=== PATIENT | male | born 1975 | race Caucasian/White ===

== ENCOUNTER → 2018-03-27 | Outpatient (CLI) | payer OTHER ==
--- NOTE | 2018-03-27 09:16 | CT ---
EXAMINATION TYPE: CT abdomen pelvis wo con DATE OF EXAM: 03/27/2018 COMPARISON: None HISTORY: 42-year-old man Generalized abdominal pain with history of prior stones. CT DLP: 517 mGycm. Automated exposure control for dose reduction was used. TECHNIQUE: Contiguous axial scanning of the abdomen and pelvis without IV contrast. Coronal and sagit jessica reconstructions performed. FINDINGS: Are normal size without pericardial effusion. Lung bases clear without pleural effusion. Noncontrast appearance of the liver, adrenal glands, spleen, and pancreas show no gross abnormality. No abnormal gallbladder distention. There is some focal thickening at the fundus of the gallbladder, reference axial image 58 and coronal image 16. Kidneys show no evidence for nephrolithiasis or hydronephrosis. A couple phleboliths are present in the left side of the pelvis. Otherwise, no suspicious calcificati on seen along course of either ureter.. There may be some mild diffuse gastric fold thickening along the fundus and proximal body, refer to a xial image 19. The lung for noncontrast technique, no mesenteric or retroperitoneal lymphadenopathy is identified. Mild circumferential wall thickening along the hepatic flexure, coronal image 23 likely relates to no ndistention. Moderate stool burden scattered diverticular change in the sigmoid colon. No pericolonic inflammatory change. Suspect a phlebolith along the right inguinal canal measuring 6 mm. Bladder not distended. Prostate gland measures 4.2 cm wide. No abnormal fluid collection in the pelvi s. No pelvic lymphadenopathy identified. Prominent stool distending the rectum up to 6.6 cm wide. No associated wall thickening or presacral edema. Bones: Mild degenerative changes of the right hip. No osseous destructive process. IMPRESSION: 1. No nephrolithiasis or hydronephrosis. 2. Some focal thickening at the gallbladder fundus could represent a phrygian cap or adenomyomatosis . If any symptoms here, gallbladder ultrasound can further evaluate. 3. Mild circumferential wall thickening at the hepatic flexure likely relates to nondistention. Eber elate to exclude a mild nonspecific colitis. 4. In addition, there is suggestion of mild diffuse fold thickening of the gastric fundus and proxim al body that could represent gastritis. Again, correlate with patient's symptoms.
== END | disposition home or self-care (01) ==
LOC: RADCTMAIN 07:56
PROVIDERS: ATTEND Family Medicine
DX: K82.8 Other specified diseases of gallbladder (principal); K63.89 Other specified diseases of intestine; K31.89 Other diseases of stomach and duodenum; R10.84 Generalized abdominal pain
CPT/HCPCS: 74176

== ENCOUNTER → 2018-04-08 | Outpatient (CLI) | payer OTHER ==
--- NOTE | 2018-04-08 08:34 | US ---
EXAMINATION TYPE: US abdomen limited DATE OF EXAM: 04/08/2018 COMPARISON: CT 2019 CLINICAL HISTORY: R10.84 Generalized abdominal pain. Abdomen pain x 1 month EXAM MEASUREMENTS: Liver Length: 14.9 cm Gallbladder Wall: 0.2 cm CBD: 0.4 cm Right Kidney: 10.2 x 4.5 x 4.3 cm Pancreas: wnl Liver: wnl Gallbladder: wnl Evidence for sonographic Martin's sign: no CBD: wnl Right Kidney: wnl Visualized portion of pancreas is within normal limits on initial images, portions are suboptimally e valuated as are obscured by overlying bowel gas. Visualized liver shows no worrisome intrahepatic mas s or ductal dilatation. IVC is seen near hepatic dome. Gallbladder is seen without shadowing mobile g allstones or surrounding pericholecystic fluid. Common bile duct measures within normal limits. Limit ed images right kidney show no gross hydronephrosis. IMPRESSION: No shadowing mobile gallstones or ultrasound evidence for acute cholecystitis.
== END | disposition home or self-care (01) ==
LOC: RADUSWWP 07:47
PROVIDERS: ATTEND Family Medicine
DX: R10.84 Generalized abdominal pain (principal)
CPT/HCPCS: 76705